=== PATIENT | male | born 1955 | race African-American/Black ===

== ENCOUNTER 2017-04-09 16:43 | Emergency (ER) | payer OTHER ==
[~2017-04-09] VITALS: Ht 182.9 cm; Wt 91.6 kg
[~2017-04-09 16:43] MED LIST: AMOXIL 875 MG875 MG PO; MOTRIN 600 MG600 MG PO; MOTRIN800 MG PO; TAMIFLU 75MG75 MG PO; VIBRAMYCIN 100100 MG PO; ZOFRAN4 M1 SL
--- NOTE | 2017-04-09 17:12 | ED CARDIAC/CP/PALPITATIONS ---
History of Present Illness General Chief Complaint: General Adult Stated Complaint: STENT PUT IN DECEMBER 2016, "CHEST TIGHTNESS" Source: patient Exam Limitations: no limitations Vital Signs & Intake/Output Vital Signs & Intake/Output ED Intake and Output 04/10 0000 04/09 1200 Intake Total 0 Output Total Balance 0 Intake, Oral 0 Patient 202 lb Weight Weight Reported by Patient Measurement Method Allergies Coded Allergies: NO KNOWN ALLERGIES (04/14/14) Reconcile Medications Doxycycline (Vibramycin 100 MG Cap) 100 MG CAP 1 TAB PO BID pneumonia Ibuprofen (Motrin) 800 MG TAB 1 TAB PO TID PRN EAR PAIN Ibuprofen (Motrin 600 MG Tab) 600 MG TABLET 1 TAB PO Q6P PRN PAIN Ondansetron (Zofran Odt) 4 MG TAB.RAPDIS 1 ODT SL Q6P PRN NAUSEA Oseltamivir Phosphate (Tamiflu 75MG) 75 MG CAPSULE 1 CAP PO BID viral syndrome Triage Note: PT STATES HE IS HAVING CHEST DISCOMFORT, SLIGHT TIGHTNESS. PT STATES HE HAD A STENT PLACED IN DECEMBER AND JUST CAME TO GET CHECKED OUT. PT STATES HE IS HAVEING SLIGHT SOB NO DIAPHORESIS. PT STATES PAIN BEGAN ABOUT 1 HOUR AGO. Triage Nurses Notes Reviewed? yes Onset: Gradual Duration: hour(s): (8), better, continues in ED Timing: single episode today Quality/Severity: mild, tightness Location: substernal Radiation: no radiation Activities at Onset: rest Prior Chest Pain/Card Workup: cardiac cath Nitro Today/Relief: 0.4 mg x 1, provided by ED, no relief Aspirin Today: 81 mg x 1, provided at home HPI: 62-year-old male past medical history of hypertension, hyperlipidemia, coronary artery disease DC in December 2016 treated with stent presents for evaluation of chest pain. Patient states that symptoms started while he was at rest about 6 hours prior to presentation. He states that the chest discomfort is located in the left side of the chest describes it as mild tightness. It's gotten better since it first started. No associated symptoms including shortness of breath nausea vomiting sweats chills hemoptysis or lower extremity edema. He states that this feels completely different than his previous DC. He's been taking all his medications as directed. No drug or alcohol use. No abdominal pain or back pain. He is not taking any medicine for his pain. There are no alleviating or aggravating factors. (Jona Antony) Past History Travel History Traveled to [place] past 21 day No Medical History Any Pertinent Medical History? see below for history Cardiovascular: hyperlipidemia, STENTS Endocrine: hypothyroidism Surgical History Surgical History: N Psychosocial History What is your primary language Swedish Tobacco Use: Never used ETOH Use: denies use Illicit Drug Use: denies illicit drug use Family History Hx Contributory? No (Jona Antony) Review of Systems Review of Systems Constitutional: Reports: no symptoms. EENTM: Reports: no symptoms. Respiratory: Reports: no symptoms. Cardiovascular: Reports: see HPI, chest pain. GI: Reports: no symptoms. Genitourinary: Reports: no symptoms. Musculoskeletal: Reports: no symptoms. Skin: Reports: no symptoms. Neurological/Psychological: Reports: no symptoms. Hematologic/Endocrine: Reports: no symptoms. Immunologic/Allergic: Reports: no symptoms. All Other Systems: Reviewed and Negative (Jona Antony) Physical Exam Physical Exam General Appearance: well developed/nourished, no apparent distress, alert, awake Head: atraumatic, normal appearance Eyes: Bilateral: normal appearance, PERRL, EOMI. Ears, Nose, Throat: normal pharynx, normal ENT inspection, hearing grossly normal Neck: normal inspection, supple, full range of motion Respiratory: normal breath sounds, chest non-tender, no respiratory distress, lungs clear Cardiovascular: regular rate/rhythm, normal peripheral pulses Peripheral Pulses: 2+ radial (R), 2+ radial (L) Gastrointestinal: normal bowel sounds, soft, non-tender, no organomegaly Back: normal inspection, normal range of motion, no vertebral tenderness Extremities: normal inspection, normal range of motion, no edema Neurologic/Psych: no motor/sensory deficits, awake, alert, oriented x 3, normal gait, normal mood/affect Skin: intact, normal color, warm/dry Core Measures ACS in differential dx? Yes CVA/TIA Diagnosis No Sepsis Present: No Sepsis Focused Exam Completed? No (Jona Antony) Progress Differential Diagnosis: AMI, aortic dissection, atrial fibrillation, CHF/pulm edema, costochondritis, musculoskeletal pain, pancreatitis, pericarditis, pneumonia, pneumothorax, PSVT, pulmonary embolism, PUD/GERD, PVCs/PACs, rib fracture, unstable angina Plan of Care: Laboratory Tests 04/09/17 2030: Troponin I < 0.01 Patient seen and evaluated. He has a history of DC treated with cardiac stents in December 2016. His symptoms today are different. He feels like he is getting better. Initial EKG shows some borderline T-wave changes is in the inferior leads. Troponin is negative d-dimer is negative chest x-ray is negative. Case was discussed with Dr. Brown serging machine operator. He recommended medicating patient with nitroglycerin and reassessing. Was given nitroglycerin and reevaluated. He did not improve after nitroglycerin. A repeat EKG and troponin was done at the 4 hour jl. Patient reports at this time his pain has completely resolved. This was several hours after the nitroglycerin was given. He denies any chest pain shortness of breath currently. Dr. Brown feels that if he is asymptomatic he can go home. Patient was instructed to continue all medications as directed. Follow-up with serging machine operator as soon as possible. Discussed return precautions in detail. Case was discussed with Dr. whitaker and he agrees. Diagnostic Imaging: Viewed by Me: Radiology Read. Discussed w/RAD: Radiology Read. CXR Impression: PATIENT: PAULY MEZA V PRESENT AGE: 62 PATIENT ACCOUNT NO: [id number] : 57 LOCATION: [facility] ORDERING PHYSICIAN: Jona MICHEL SERVICE DATE: 04/09/17 EXAM TYPE: RAD - XRY-PORTABLE CHEST XRAY EXAMINATION: XR PORTABLE CHEST CLINICAL INFORMATION: Chest pain. COMPARISON: Portable chest 04/14/2014. TECHNIQUE: Portable frontal view of the chest was obtained. FINDINGS: Both lungs are fairly well-expanded and clear of acute process. The heart size and pulmonary vascularity is normal. No gross bony abnormality seen. IMPRESSION: Unremarkable chest exam. No change from 2014. DICTATED BY: Arlyn CORNELIUSYuan DATE/TIME DICTATED:04/09/171748 [employer] DRIVER:JOIE DATE/TIME TRANSCRIBED:04/09/171748 CONFIDENTIAL, DO NOT COPY WITHOUT APPROPRIATE AUTHORIZATION. Initial ED EKG: normal sinus rhythm, NORMAL SINUS RHYT FIRST-DEGREE av BLOCK, PROBABLE LEFT ATRIAL ABNORMALITY, BORDERLINE t-WAVE ABNORMALITIES IN INFERIOR LEADS HM, Repeat EKG: unchanged (Jona Antony) Departure Departure Disposition: HOME OR SELF CARE Condition: Stable Clinical Impression Primary Impression: Chest pain Qualifiers: Chest pain type: unspecified Qualified Code: R07.9 - Chest pain, unspecified Referrals: Audrey Cummings MD (PCP/Family) Additional Instructions: Continue to take all medications as directed. Make a follow-up with your serging machine operator and your primary care doctor as soon as possible. Monitor symptoms return with any concerns. Departure Forms: Customer Survey General Discharge Information (Jona Antony) PA/DELI SLICER Co-Sign Statement Statement: ED Attending supervision documentation- x I saw and evaluated the patient. I have also reviewed all the pertinent lab results and diagnostic results. I agree with the findings and the plan of care as documented in the PA's/DELI SLICER's documentation. [] I have reviewed the ED Record and agree with the PA's/DELI SLICER's documentation. [] Additions or exceptions (if any) to the PAs/DELI SLICER's note and plan are summarized below: [] (Good CORNELIUS,Gus) Critical Care Note Critical Care Note Critical Care Time: non-applicable (Jona Antony) PROBABLE LEFT ATRIAL ABNORMALITY, BORDERLINE t-WAVE ABNORMALITIES IN INFERIOR LEADS HM, Repeat EKG: unchanged Departure Departure Disposition: HOME OR SELF CARE Condition: Stable Clinical Impression Primary Impression: Chest pain Qualifiers: Chest pain type: unspecified Qualified Code: R07.9 - Chest pain, unspecified Referrals: Audrey Cummings MD (PCP/Family) Additional Instructions: Continue to take all medications as directed. Make a follow-up with your serging machine operator and your primary care doctor as soon as possible. Monitor symptoms return with any concerns. Departure Forms: Customer Survey General Discharge Information Critical Care Note Critical Care Note Critical Care Time: non-applicable
[2017-04-09 17:17] LABS: ABSOLUTE BASOPHIL COUNT 0 /CUMM (0.0-0.2); ABSOLUTE EOSINOPHIL COUNT 0.2 /CUMM (0.0-0.7); ABSOLUTE GRANULOCYTE CT 1.4 /CUMM (1.4-6.5); ABSOLUTE LYMPH COUNT 2.3 /CUMM (1.2-3.4); ABSOLUTE MONOCYTE COUNT 0.7 /CUMM (0.10-0.60); GRANULOCYTE % 30.4 % (42.2-75.2); HEMATOCRIT 44.1 % (42-52); MEAN CORPUSCULAR HGB 30.6 PG (27.0-31.0); MEAN CORPUSCULAR HGB CONC 33.8 G/DL (33.0-37.0); MEAN CORPUSCULAR VOLUME 90.6 FL (80.0-94.0); MEAN PLATELET VOLUME 10.7 FL (7.4-10.4); PLATELET COUNT 144 /CUMM (130-400); RBC DISTRIBUTION WIDTH 13.9 % (11.5-14.5); RED BLOOD CELL CT 4.87 /CUMM (4.70-6.10); WHITE BLOOD CELL COUNT 4.7 /CUMM (4.8-10.8)
--- NOTE | 2017-04-09 17:54 | RADIOLOGY REPORT ---
EXAMINATION: XR PORTABLE CHEST CLINICAL INFORMATION: Chest pain. COMPARISON: Portable chest 04/14/2014. TECHNIQUE: Portable frontal view of the chest was obtained. FINDINGS: Both lungs are fairly well-expanded and clear of acute process. The heart size and pulmonary vascularity is normal. No gross bony abnormality seen. IMPRESSION: Unremarkable chest exam. No change from 04/14/2014.
[2017-04-09 19:12] VITALS: BP 112/68
== END 2017-04-09 21:55 ==
LOC: ERH 16:43
PROVIDERS: Emergency Medicine
DX: R07.89 Other chest pain (principal)
CPT/HCPCS: 71045; 93005; 93010; J3490